=== PATIENT | female | born 1935 | race Caucasian/White ===

== ENCOUNTER 2016-06-17 10:50 | Emergency (ER) | payer MEDICARE ==
[2016-06-17] MEDS ORDERED: LACTATED RINGERS 1,000 ML ONE (12:06)
[2016-06-17 13:27] LABS: CALCIUM 9.2 mg/dL (8.6-10.3)
[2016-06-17 13:28] LABS: ALB/GLOB RATIO 1.1 (>1.0); ALBUMIN 3.7 gm/dL (3.5-5.7)
[2016-06-17 13:30] LABS: CKMB ISOENZYME 2.5 ng/ml (0.6-6.3)
[2016-06-17 13:31] LABS: HEMATOCRIT 46.3 % (37.0-47.0); HEMOGLOBIN 15.2 gm/l (12.0-16.0); MEAN CELL VOLUME 90.6 fl (81.0-99.0); THYROID STIMULATING HORMONE 2.8 uIU/ml (0.34-5.60)
[2016-06-17 13:32] LABS: EOS % 1.3 % (0.9-2.9); LYMPH % 22.7 % (15-45); MEAN CORPUSCULAR HEMOGLOBIN 29.7 pg (27.0-31.0); MEAN CORPUSCULAR HGB CONC 32.8 g/dl (33.0-37.0); MEAN PLATELET VOLUME 11.1 fl (7.4-10.4); MONO % 6.8 % (4-12); NEUT % 67.9 % (43-75); PLATELET COUNT 264 K/mm3 (130-400); RED CELL DISTRIBUTION WIDTH 12.8 % (11.5-14.5)
[2016-06-17 14:16] LABS: SPECIFIC GRAVITY 1.015 (1.001-1.030); URINE BILIRUBIN NEGATIVE (NEGATIVE); URINE BLOOD NEGATIVE (NEGATIVE); URINE GLUCOSE (UA) NEGATIVE (NEGATIVE); URINE LEUKOCYTE ESTERASE NEGATIVE (NEGATIVE); URINE NITRITE NEGATIVE (NEGATIVE); URINE PROTEIN NEGATIVE (NEGATIVE); URINE UROBILINOGEN NORMAL (0-1 mg/dl)
[2016-06-17 14:17] LABS: URINE APPEARANCE CLEAR; URINE COLOR STRAW
== END 2016-06-17 18:02 | disposition home or self-care (01) ==
LOC: ED 10:50
DX: R53.1 Weakness (principal); R42 Dizziness and giddiness; R11.0 Nausea; I10 Essential (primary) hypertension
CPT/HCPCS: 85025; 82550; 82553; 80053; 83735; 81003; 84443; 84484; 97161; 99284; 96360; 96361 ×5; 93005; 99283; J7120